=== PATIENT | male | born 1960 | race Caucasian/White ===

== ENCOUNTER → 2024-02-16 06:27 | Day surgery (SDC) | payer OTHER, SELFPAY ==
[2024-02-16 10:51] LABS: Glucose - Point of Care 121 mg/dl (70-99)
== END ==
LOC: GI 06:27
PROVIDERS: ATTENDING PHYSICIAN Internal Medicine Gastroenterology
DX: K52.3 Indeterminate colitis (principal); Z90.49 Acquired absence of other specified parts of digestive tract
CPT/HCPCS: 44382; 88305; 82962

== ENCOUNTER → 2024-03-10 08:03 | Outpatient (REF) | payer OTHER, SELFPAY | LOC: RCS 08:03 | PROVIDERS: ATTENDING PHYSICIAN Internal Medicine Gastroenterology; FAMILY PHYSICIAN Internal Medicine | DX: R10.9 Unspecified abdominal pain (principal) | CPT/HCPCS: 93005 ==

== ENCOUNTER 2024-11-07 12:08 | Emergency (ER) | payer OTHER, SELFPAY ==
[2024-11-07 12:10] VITALS: BP 170/74
[2024-11-07 12:26] VITALS: BMI 32.5
[2024-11-07 12:35] VITALS: BP 113/91
[2024-11-07 13:57] VITALS: BP 146/80
[2024-11-07 14:00] VITALS: BP 134/82
--- NOTE | 2024-11-07 14:57 | ED.GENMED ---
History of Present Illness
General
Chief Complaint: Male Genito-Urinary Symptoms
Source: patient
Exam Limitations: none
Time Seen by Provider: 11/07/24 12:29
History of Present Illness
History of Present Illness:
64-year-old male presents with progressive swelling to the left side of the scrotum over the past several days. He sought treatment at an urgent care today for the same and they sent him here for further evaluation. He denies fevers. He has a
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 No recent injury. He did not lift heavy objects. No other complaints at this time
Past History
Past History
ED Past Medical History: HTN, Hypercholesterolemia, NIDDM and Other (Chrons)
ED Past Surgical History: Other (Ileostomy)
Social History
Tobacco: Smoker
Alcohol: Occasional
Personal: Single
Phy Exam
Physical Exam
Physical Exam:
General: Well-appearing male no acute distress
exam: Circumcised male left side of scrotum white swollen without fluctuance or induration. This is tender. No discharge
Skin is warm without rash
Course
Orders/Labs/Results
Orders:
Orders
11/07/24 12:13
US Scrotum Urgent
Comment:
Reason For Exam: lest testicular pain
Vital Signs
Initial and Last Documented VS:
Initial Vital Signs
Temp Pulse Resp BP Pulse Ox
98.9 F 87 17 170/74 99
11/07/24 12:10 11/07/24 12:10 11/07/24 12:10 11/07/24 12:10 11/07/24 12:10
Last Documented Vital Signs
Temp Pulse Resp BP Pulse Ox
98.9 F 67 14 134/82 98
11/07/24 12:10 11/07/24 14:34 11/07/24 14:34 11/07/24 14:00 11/07/24 14:59
MDM/Problems Addressed
Differential Diagnosis Includes:
Patient with left scrotal swelling. Consider abscess versus hydrocele versus torsion versus mass
Afebrile here no signs of cellulitis on exam, ultrasound demonstrates 8 cm fluid-filled mass with possibilities including hydrocele versus seroma versus abscess and less likely hernia
Reached out for recommendations from urology
*Pulse Oximetry
SaO2: 98
Oxygen Mode of Delivery: Room air
Patient hypoxic: no
*Critical Care Note
Total Time (30-74mins, 75-104mins- exclusive of procedures): Not Applicable
Update Note
Update Note:
Neurology recommends outpatient follow-up. Recommended formfitting underwear. Patient is on Dilaudid at home for chronic pain. Recommended ibuprofen
ED Attending Note
-
Portions of this chart may have been created with voice recognition software.� Occasional wrong word or��sound alike� substitutions may have occurred due to the inherent limitations of voice recognition software.
Discharge Plan
Departure
Patient Disposition: Home (Routine Discharge)
Date of Disposition: 11/07/24
Time of Disposition: 15:20
Patient with high blood pressure during this ER visit?: No
Discharge Problem:
Acute hydrocele
Instructions: Hydrocele
Prescriptions:
No Action
metformin 500 MG tablet
500 mg PO DAILY
trazodone 50 MG tablet
50 mg PO BID
atorvastatin 10 MG tablet
10 mg PO QPM
furosemide 80 MG tablet
80 mg PO DAILY
hydromorphone [Dilaudid] 4 MG tablet
4 mg PO TID PRN (Reason: severe pain)
cholecalciferol (vitamin D3) 2,000 UNIT tablet
2,000 unit PO DAILY
Morphine Pump
1 dose .Route DAILY
Patient Comments:
per papers with pt
morphine 3.895mg/day
Clonidine 15.58mg/day
Potassium
1 tab PO DAILY
amoxicillin-pot clavulanate 1 TABLET tablet
1 tab PO Q12 Qty: 19 0RF
Referrals:
[facility], [Other]
Quoc Butler MD [Active, Urology]
Karen Muir MD [Non-Admitting Privileges, Internal Medicine]
Activity Restrictions/Additional Instructions:
Continue to use tight formfitting underwear. You may use ibuprofen if needed for pain. Follow-up with urology for further evaluation. Return here if you develop worsening symptoms.
Interventions
Interventions:
*Risk Screen - Suicide Last Done: 11/07/24 12:12
*General Assessment Last Done: 11/07/24 12:12
*Neglect/Abuse Screening Last Done: 11/07/24 12:12
*ED- Fall Risk Assessment Last Done: 11/07/24 12:26
*ED COVID-19 Vaccine History Last Done: 11/07/24 12:12
ED-Male Genitourinary Assessment Last Done: 11/07/24 12:26
Discharge Date and Time
Print Language: GEORGIAN
[2024-11-07 15:00] VITALS: BP 149/77
[2024-11-07 15:33] VITALS: BP 155/85
== END 2024-11-07 15:38 | disposition home or self-care (01) ==
LOC: EMR 12:08
PROVIDERS: EMERGENCY PHYSICIAN Emergency Medicine; FAMILY PHYSICIAN Internal Medicine
DX: N43.3 Hydrocele, unspecified (principal); I10 Essential (primary) hypertension; E78.00 Pure hypercholesterolemia, unspecified; E11.9 Type 2 diabetes mellitus without complications; F17.200 Nicotine dependence, unspecified, uncomplicated; K50.90 Crohn's disease, unspecified, without complications; Z79.84 Long term (current) use of oral hypoglycemic drugs; Z79.891 Long term (current) use of opiate analgesic
CPT/HCPCS: 99284; 76870; 93976

== ENCOUNTER → 2024-12-06 09:17 | Outpatient (REF) | payer OTHER, SELFPAY | LOC: HWRAD 09:17 | PROVIDERS: ATTENDING PHYSICIAN Specialist; FAMILY PHYSICIAN Internal Medicine; REFERRING PHYSICIAN Internal Medicine Gastroenterology | DX: N50.9 Disorder of male genital organs, unspecified (principal); R10.9 Unspecified abdominal pain | CPT/HCPCS: 72192; 93005 ==

== ENCOUNTER 2024-12-09 05:48 | Day surgery (SDC) | payer OTHER, SELFPAY ==
[2024-12-08 13:57] VITALS: BMI 33.3
[2024-12-08 14:14] LABS: Hematocrit 42.6 % (39.0-52.0); Hemoglobin 14.8 g/dL (13.0-18.0); Mean Corp Hgb Conc. 34.7 g/dL (33.0-37.0); Mean Corpuscular Volume 92.0 fL (80.0-94.0); Platelet Count 201 10^3/uL (130-400); Red Cell Dist. Width 13.5 % (11.5-14.5)
[2024-12-08 14:31] LABS: Blood Urea Nitrogen 14 mg/dl (9-20); Calcium 9.4 mg/dl (8.4-10.2); Carbon Dioxide 29 mmol/L (22-30); Chloride 104 mmol/L (98-107); Estimated Creatinine Clearance 98 ml/min; Glucose 99 mg/dl (70-99); Potassium 4.0 mmol/L (3.5-5.1); Sodium 138 mmol/L (135-145); eGFR > 60.00
[2024-12-09] VITALS (11 sets, daily range): BP systolic 111–144; BP diastolic 59–78; BMI 33.3
[2024-12-09] MEDS: NORMOSOL-R/PLASMALYTE-A 1000 IV (06:25)
[2024-12-09 06:27] LABS: Glucose - Point of Care 109 mg/dl (70-99)
== END 2024-12-09 10:10 | disposition home or self-care (01) ==
LOC: SDS 05:48
PROVIDERS: ATTENDING PHYSICIAN Specialist; FAMILY PHYSICIAN Internal Medicine
DX: N43.41 Spermatocele of epididymis, single (principal); N50.0 Atrophy of testis
CPT/HCPCS: 54840; 36415; 80048; 82962; 85027; 88304